=== PATIENT | female | born 1990 ===

== ENCOUNTER 2022-02-02 15:27 | Emergency (ER) | payer SELFPAY ==
[2022-02-02 15:35] VITALS: BP 124/84
[2022-02-02 16:46] LABS: Alanine Aminotransferase 25 units/L (7-56); Albumin 4.7 g/dL (3.9-5); Blood Urea Nitrogen 12 mg/dL (7-17); Calcium 9.9 mg/dL (8.4-10.2); Hemolysis Index 2
[2022-02-02 16:51] LABS: BUN/Creatinine Ratio 24
[2022-02-02 18:13] LABS: Hematocrit 28.4 % (30.3-42.9); Hemoglobin 8.8 gm/dl (10.1-14.3); Mean Corpuscular HGB Conc 31 % (30-34); Mean Corpuscular Volume 75 fl (79-97); Platelet Count 378 K/mm3 (140-440); Red Blood Count 3.81 M/mm3 (3.65-5.03); Red Cell Distribution Width 18.3 % (13.2-15.2)
== END 2022-02-02 21:00 | disposition left against medical advice (07) ==
LOC: ED 15:27
DX: R10.9 Unspecified abdominal pain (principal); Z53.21 Procedure and treatment not carried out due to patient leaving prior to being seen by health care provider
CPT/HCPCS: 36415; 80053; 83690; 84703; 85027